=== PATIENT | female | born 1950 | race Caucasian/White ===

== ENCOUNTER 2024-06-20 09:08 | Emergency (ER) | payer OTHER ==
[~2024-06-20] VITALS: Ht 160 cm; Wt 92.0 kg
[2024-06-20 09:21] VITALS: TEMP 98.9
[2024-06-20] MEDS: albuterol 2.5 MG/3 ML nebule NEB ONE (09:58)
[2024-06-20 09:59] VITALS: PULSE 69; RESP 18; O2SAT 97
[2024-06-20 10:05] VITALS: PULSE 69; RESP 14; O2SAT 98
[2024-06-20] MEDS ORDERED: METF-438 PO (10:25)
[2024-06-20] MEDS ORDERED: TRAM50TA2 PO (10:25)
[2024-06-20] MEDS ORDERED: BENA40TA72 PO (10:25)
[2024-06-20] MEDS ORDERED: OMEG100037 PO (10:25)
[2024-06-20] MEDS ORDERED: ATOR20TA66 PO (10:25)
[2024-06-20] MEDS ORDERED: GLIP10TA21 PO (10:25)
[2024-06-20] MEDS ORDERED: PREG75CA76 PO (10:25)
[2024-06-20] MEDS ORDERED: INSU100V9 SQ (10:25)
[2024-06-20] MEDS ORDERED: FURO20TA4 PO (10:25)
[2024-06-20] MEDS ORDERED: MULT-1085 PO (10:25)
[2024-06-20] MEDS ORDERED: DORZ10DR9 EACHEYE (10:25)
[2024-06-20] MEDS ORDERED: LEVO25TA7 PO (10:25)
[2024-06-20] MEDS ORDERED: HYDR200T73 PO (10:25)
[2024-06-20 10:48] LABS: ALANINE AMINOTRANSFERASE 29 U/L (12-78); ALBUMIN 3.1 G/DL (3.4-5.0); ALBUMIN/GLOBULIN RATIO 0.8 (1.1-1.5); ALKALINE PHOSPHATASE 97 IU/L (46-116); ANION GAP 7 (8-16); ASPARTATE AMINO TRANSFERASE 25 U/L (10-37); BILIRUBIN,TOTAL 0.3 MG/DL (0.1-1.0); BLOOD UREA NITROGEN 23 MG/DL (7-18); BUN/CREATININE RATIO 21.3 (10.0-20.0); CALCIUM 8.9 MG/DL (8.5-10.1); CHLORIDE 110 MMOL/L (99-107); CREATININE 1.08 MG/DL (0.40-0.90); GLUCOSE 79 MG/DL (70-104); SODIUM 140 MMOL/L (135-145); TOTAL CARBON DIOXIDE 22.6 MMOL/L (24-32); TOTAL PROTEIN 7.2 G/DL (6.4-8.2); eCRCL 37 ML/MIN; eGFR 49 ML/MIN
[2024-06-20] MEDS ORDERED: NIRM1TAB7 PO (11:11)
[2024-06-20 11:44] VITALS: BP 110/90; PULSE 69; RESP 18; O2SAT 96
== END 2024-06-20 11:45 | disposition home or self-care (01) ==
LOC: ER 09:08
DX: U07.1 COVID-19 (principal); E11.9 Type 2 diabetes mellitus without complications; J44.9 Chronic obstructive pulmonary disease, unspecified; Z20.822 Contact with and (suspected) exposure to COVID-19
CPT/HCPCS: 36415; 71045; 80053; 87502; 87503; 87811; 94640; 94760; 99284